=== PATIENT | male | born 2000 | race Caucasian/White ===

== ENCOUNTER → 2022-03-05 | Outpatient (CLI) | payer OTHER ==
--- NOTE | 2022-03-05 15:53 | XR ---
Left elbow HISTORY: Trauma and pain 3 views the left elbow Bone mineralization, joint spaces and alignment are maintained. There is no evident joint effusion. IMPRESSION: No fracture or dislocation.
== END | disposition home or self-care (01) ==
LOC: RADXRMAIN 15:28
PROVIDERS: ATTEND Emergency Medicine
DX: S51.012A Laceration without foreign body of left elbow, initial encounter (principal); S50.02XA Contusion of left elbow, initial encounter; X58.XXXA Exposure to other specified factors, initial encounter